=== PATIENT | male | born 1940 | race Caucasian/White ===

== ENCOUNTER 2017-12-29 06:46 | Day surgery (SDC) | payer MEDICARE, OTHER ==
[~2017-12-29] VITALS: Ht 175.3 cm; Wt 73.2 kg
[~2017-12-29 06:46] MED LIST: ASCO500C18 PO; BRIM155OS OD; CITA40TA6 PO; MULT-1203 PO; TAMS-1 PO; TIMO.25OS OU; VITA1CAP85 PO
[2017-12-29] MEDS ORDERED: SODIUM CHLORIDE 0.9% 1000ML 1,000 ML IV ONE (06:55)
[2017-12-29 07:30] VITALS: BP 118/63
[2017-12-29] MEDS ORDERED: PROPOFOL 10 MG/ML 20ML VIAL IV ONE (08:23)
[2017-12-29 08:59] VITALS: BP 72/31
== END 2017-12-29 09:30 ==
LOC: DAH 06:46 → ENDO 06:46
PROVIDERS: ATTEND Internal Medicine Gastroenterology
DX: K63.5 Polyp of colon (principal); K56.2 Volvulus; K55.21 Angiodysplasia of colon with hemorrhage; G43.909 Migraine, unspecified, not intractable, without status migrainosus; N40.0 Benign prostatic hyperplasia without lower urinary tract symptoms; M19.90 Unspecified osteoarthritis, unspecified site; H40.89 Other specified glaucoma; F32.9 Major depressive disorder, single episode, unspecified; M10.9 Gout, unspecified; Z79.899 Other long term (current) drug therapy
CPT/HCPCS: 45380; 45382; 88305; A4606; J2704; J7030